=== PATIENT | female | born 1990 | race Native Hawaiian/Other Pacific Islander ===

== ENCOUNTER 2019-06-28 10:10 | Observation (INO) | payer OTHER ==
[2019-06-28] MEDS ORDERED: PREN-96 PO (13:39)
== END 2019-06-28 13:10 | disposition home or self-care (01) | DRG 833 ==
LOC: LDRP 10:10
PROVIDERS: ADMIT Obstetrics & Gynecology; ATTEND Obstetrics & Gynecology
DX: O60.00 Preterm labor without delivery, unspecified trimester (principal); Z3A.00 Weeks of gestation of pregnancy not specified
CPT/HCPCS: 59025; 81002; G0378

== ENCOUNTER 2019-07-03 15:52 | Observation (INO) | payer OTHER ==
[~2019-07-03] VITALS: Ht 172.7 cm; Wt 148.3 kg
[~2019-07-03 15:52] MED LIST: PREN-96 PO
[2019-07-03] MEDS ORDERED: TERBUTALINE SULFATE 1 MG/ML 1ML VIAL SC ONE (17:30)
[2019-07-03] MEDS ORDERED: LACTATED RINGER'S 1,000 ML IV ONE (17:30)
== END 2019-07-03 19:15 | disposition home or self-care (01) | DRG 833 ==
LOC: LDRP 15:52
PROVIDERS: ADMIT Specialist; ATTEND Specialist
DX: O36.63X0 Maternal care for excessive fetal growth, third trimester, not applicable or unspecified (principal); Z3A.37 37 weeks gestation of pregnancy; Z87.891 Personal history of nicotine dependence
CPT/HCPCS: 59025; 76818; 81002; G0378; J3105; 96366; 96372

== ENCOUNTER 2019-07-05 09:18 | Observation (INO) | payer OTHER | END 2019-07-05 10:15 | disposition home or self-care (01) | DRG 833 | LOC: LDRP 09:18 | PROVIDERS: ADMIT Obstetrics & Gynecology; ATTEND Obstetrics & Gynecology | DX: O40.3XX0 Polyhydramnios, third trimester, not applicable or unspecified (principal); Z87.891 Personal history of nicotine dependence; Z3A.37 37 weeks gestation of pregnancy | CPT/HCPCS: 59025; 81002; G0378 ==

== ENCOUNTER 2019-07-07 09:51 | Observation (INO) | payer OTHER ==
[~2019-07-07] VITALS: Ht 170.2 cm; Wt 149.7 kg
[2019-07-07] MEDS ORDERED: TERBUTALINE SULFATE 1 MG/ML 1ML VIAL SC SCH (12:15)
== END 2019-07-07 12:12 | disposition home or self-care (01) | DRG 833 ==
LOC: LDRP 09:51
PROVIDERS: ADMIT Specialist; ATTEND Specialist
DX: O40.3XX0 Polyhydramnios, third trimester, not applicable or unspecified (principal); O36.63X0 Maternal care for excessive fetal growth, third trimester, not applicable or unspecified; Z3A.37 37 weeks gestation of pregnancy; Z87.891 Personal history of nicotine dependence
CPT/HCPCS: 59025; 76818; 81002; 96372; G0378; J3105